=== PATIENT | male | born 1980 | race Caucasian/White ===

== ENCOUNTER 2018-05-12 21:03 | Emergency (ER) | payer SELFPAY ==
--- NOTE | 2018-05-12 23:39 | RADIOLOGY REPORT (SQ) ---
EXAM DESCRIPTION: XR ABDOMEN 2 VIEWS SUPINE ERECT COMPLETED DATE/TME: 05/12/2018 22:56 CLINICAL HISTORY: abdominal pain COMPARISON: None. FINDINGS: Upright and supine views of the abdomen. Bowel: No dilated loops of large or small bowel. Peritoneum: No free intraperitoneal air identified. Solid organs: No definite organomegaly. Calcifications: No abnormal calcifications. Bones: No acute osseous abnormalities. Other: Visualized lung bases are clear. IMPRESSION: Nonobstructive bowel gas pattern.
--- NOTE | 2018-05-12 23:44 | ER Document Report ---
ED General - General Chief Complaint: Abdominal Pain Stated Complaint: ABDOMINAL PAIN, BACK PAIN Time Seen by Provider: 05/12/18 22:24 Notes: Patient is a 38-year-old male presents with complaint of abdominal pain for months. He says he thinks it is related constipation. He says he has some diffuse crampy abdominal pain as well as pain goes into his back. Says feels similar to that gas pains. Last bowel movements 2 days ago. He says for the last month he has been using laxatives and stool softeners. He does not know the name of the laxatives or stool softeners. Says his stools are still hard and he does not have them frequently. He did vomit once today. No fevers. He has not seen a doctor about this. He does complain of acid reflux as well. He denies any chronic medical problems. He says he does not eat fast food or fried foods. TRAVEL OUTSIDE OF THE [place] IN LAST 30 DAYS: No - Related Data Allergies/Adverse Reactions: tramadol [Tramadol] Allergy (Intermediate, Verified 07/31/15 19:34) throat swelling amoxicillin [Amoxicillin] Allergy (Mild, Verified 07/31/15 19:34) Hives erythromycin base [Erythromycin Base] Allergy (Verified 07/31/15 19:34) vomitinh Past Medical History - Social History Smoking Status: Never Smoker Chew tobacco use (# tins/day): No Frequency of alcohol use: None Drug Abuse: None Family History: Reviewed & Not Pertinent Patient has suicidal ideation: No Patient has homicidal ideation: No Pulmonary Medical History: Reports: Hx Asthma Renal/ Medical History: Denies: Hx Peritoneal Dialysis Past Surgical History: Reports: Hx Tonsillectomy - Immunizations Hx Diphtheria, Pertussis, Tetanus Vaccination: No Review of Systems - Review of Systems Notes: My Normal Review Basic REVIEW OF SYSTEMS: CONSTITUTIONAL : Denies fever, chills, or sweats. Denies recent illness. EENT: Denies eye, ear, throat, or mouth pain or symptoms. Denies nasal or sinus congestion. RESPIRATORY: Denies cough, cold, or chest congestion. Denies shortness of breath, difficulty breathing, or wheezing. GASTROINTESTINAL: Diffuse crampy abdominal pain. Some nausea. Vomiting 1. MUSCULOSKELETAL: Denies neck or back pain or joint pain or swelling. SKIN: Denies rash or skin lesions. NEUROLOGICAL: Denies altered mental status or loss of consciousness. Denies headache. Denies weakness or paralysis or loss of use of either side. Denies problems with gait or speech. Denies sensory or motor loss. ALL OTHER SYSTEMS REVIEWED AND NEGATIVE. Physical Exam - Vital signs Vitals: Temp Pulse Resp BP Pulse Ox 98.4 F 83 17 129/85 H 100 05/12/18 21:10 05/12/18 21:10 05/12/18 21:10 05/12/18 21:10 05/12/18 21:10 - Notes Notes: General Appearance: Well nourished, alert, cooperative, no acute distress, mild obvious discomfort. Vitals: reviewed, See vital signs table. Head: no swelling or tenderness to the head Eyes: PERRL, EOMI, Conjuctiva clear Mouth: No decreasd moisture Lungs: No wheezing, No rales, No rhonci, No accessory muscle use, good air exchange bilaterally. Heart: Normal rate, Regular rythm, No murmur, no rub Abdomen: Normal BS, soft, No rigidity, moderate left lower quadrant abdominal tenderness to palpation. The remainder of the abdomen is mildly tender to palpation., No guarding, no rebound, no abdominal masses, no organomegaly Extremities: strength 5/5 in all extremities, good pulses in all extremities, no swelling or tenderness in the extremities, no edema. Skin: warm, dry, appropriate color, no rash Neuro: speech clear, oriented x 3, normal affect, responds appropriately to questions. Course - Re-evaluation Re-evalutation: 05/13/18 04:58 Patient's laboratory evaluation is unremarkable. No signs of infection. Suspect this pain could be related to constipation and that the patient has not been having frequent bowel movements and he says the pain does feel like a gaseous type pain that comes and goes. He has been taking laxatives every day. I informed patient I feel that maybe his movements have become laxative dependent. I will have him clear his bowels using magnesium citrate. I informed him to try to stay away from laxatives and to start eating healthy foods and drinking lots of water and to use Metamucil or some other form of fiber supplementation every day. He continues to have recurrent issues of constipation and is to follow-up with the GI doctor for further workup. I have given the numbers to to of our local GI doctors. Dictation of this chart was performed using voice recognition software; therefore, there may be some unintended grammatical errors. - Vital Signs Vital signs: Temp Pulse Resp BP Pulse Ox 97.8 F 71 17 112/93 H 98 05/13/18 01:15 05/13/18 01:15 05/12/18 21:10 05/13/18 01:15 05/13/18 01:15 - Laboratory Result Diagrams: 05/12/18 23:49 05/12/18 23:49 Laboratory results interpreted by me: 05/12/18 23:49 Eosinophils % 7.7 H Discharge - Discharge Clinical Impression: Abdominal pain Qualifiers: Abdominal location: generalized Qualified Code(s): R10.84 - Generalized abdominal pain Condition: Good Disposition: HOME, SELF-CARE Additional Instructions: CONSTIPATION: Constipation is a common problem. It is especially likely as you get older. Constipation is a common cause of abdominal pain, but sometimes causes no symptoms at all. Causes of constipation include certain medications, dehydration, diets, inactivity, and low-fiber intake. Rarely, it can be a symptom of underlying disease. The physician has evaluated you for this. Avoid constipation by eating a diet high in fiber, fruits, and vegetables. Drink plenty of liquids. Get regular exercise. If possible, avoid constipating medicines like narcotic pain medication. Some vitamin tablets can cause constipation. BULK LAXATIVES: Bulk laxatives make the stool softer and bulkier. They're useful for preventing constipation. You can choose between psyllium, methylcellulose, and polycarbophil. They are available without a prescription. Psyllium brand names include Konsyl, Metamucil, Perdiem, Effer-Syllium and Hydrocil. It's available as powder, flavored drink powder, or chewable. The usual dose of psyllium powder is one heaping teaspoon in water each morning, increasing to twice a day if needed. [place] juice can disguise the slightly grainy texture. Methylcellulose is marketed as Citrucel and other brands. The average dose is two grams in a cup of water one to three times a day. Polycarbophil is marketed as Fiber-Con. Take two tablets with a cup of water one to three times a day. LAXATIVE: A laxative agent has been prescribed for your condition. This should result in passage of stool within 12 hours. Some mild intestinal cramping is common as the hard stool begins to move. You may have loose or runny stools for a short time. Contact your doctor if there is severe cramping, vomiting, or passage of blood. Return for further care if this medicine fails to improve your condition. FOLLOW-UP CARE: If you have been referred to a physician for follow-up care, call the physician s office for an appointment as you were instructed or within the next two days. If you experience worsening or a significant change in your symptoms, notify the physician immediately or return to the Emergency Department at any time for re-evaluation. Please take the magnesium citrate as prescribed. Please do not eat for the 18 hours you are using the Magnesium Citrate. Please drink gatorade or pedialyte when using the magnesium citrate. Please return to the ER immediately if you develop vomiting, fevers, worsening pain, bloody stool, or feel unwell. Once you feel you have had several large bowel movements you can start eating again. Please stop using the laxatives. please use Metamucil daily and dmake sure you drink lots of water every day. Please follow up with the GI Physician ( Dr. Zaragoza or Dr. Eagle) for revaluation and continued workup of your constipation. Prescriptions: Magnesium Citrate [Citrate of Magnesia 296 ml Bottle] 296 ml PO DAILY #1 bottle Referrals: TOREY EAGLE MD [ACTIVE STAFF] - Follow up in 3-5 days ANGELICA ZARAGOZA MD [ACTIVE STAFF] - Follow up in 3-5 days
[2018-05-12 23:57] LABS: ABSOLUTE EOSINOPHILS # (AUTO) 0.4 10^3/uL (0.0-0.6); ABSOLUTE MONOCYTES (AUTO) 0.5 10^3/uL (0.1-1.4); ABSOLUTE NEUT (AUTO) 2.3 10^3/uL (1.7-8.2); BASOPHILS % (AUTO) 0.3 % (0-2); EOSINOPHILS % (AUTO) 7.7 % (0-6); HEMATOCRIT 40.5 % (37.9-51.0); HEMOGLOBIN 14.1 g/dL (13.5-17.0); LYMPHOCYTES % (AUTO) 38.7 % (13-45); MEAN CORPUSCULAR HEMOGLOBIN 32.2 pg (27.0-33.4); MEAN CORPUSCULAR HGB CONC 34.9 g/dL (32.0-36.0); MEAN CORPUSCULAR VOLUME 93 fl (80-97); MONOCYTES % (AUTO) 9.6 % (3-13); PLATELET COUNT 229 10^3/uL (150-450); RED BLOOD COUNT 4.38 10^6/uL (4.35-5.55); RED CELL DISTRIBUTION WIDTH 12.5 % (11.5-14.0); SEGMENTED NEUTROPHILS % (AUTO) 43.7 % (42-78); TOTAL CELLS COUNTED % (AUTO) 100 %; WHITE BLOOD COUNT 5.2 10^3/uL (4.0-10.5)
[2018-05-13 00:09] LABS: ALANINE AMINOTRANSFERASE 29 U/L (21-72); ALBUMIN 4.1 g/dL (3.5-5.0); ALKALINE PHOSPHATASE 93 U/L (38-126); ANION GAP 8 (5-19); ASPARTATE AMINO TRANSFERASE 21 U/L (17-59); BILIRUBIN,DIRECT 0.3 mg/dL (0.0-0.4); BILIRUBIN,TOTAL 0.5 mg/dL (0.2-1.3); BLOOD UREA NITROGEN 13 mg/dL (7-20); CALCIUM 9.2 mg/dL (8.4-10.2); CARBON DIOXIDE 29 mmol/L (22-30); CHLORIDE 105 mmol/L (98-107); GLUCOSE 97 mg/dL (75-110); POTASSIUM 4.4 mmol/L (3.6-5.0); SODIUM 142.2 mmol/L (137-145); TOTAL PROTEIN 6.8 g/dL (6.3-8.2)
[2018-05-13 01:16] VITALS: BP 112/93
== END 2018-05-13 01:38 | disposition home or self-care (01) ==
LOC: ER 21:03
DX: R10.84 Generalized abdominal pain (principal); M54.9 Dorsalgia, unspecified
CPT/HCPCS: 36415; 74019; 80053; 85025; 99284